=== PATIENT | male | born 1985 | race Hispanic/Latino ===

== ENCOUNTER 2017-10-16 16:56 | Inpatient (IN) | payer MEDICAID ==
[2017-10-16 16:57] VITALS: BMI 28.8
[2017-10-16 17:57] LABS: BASO % 0.6 % (0.0-2.0); EOS # 0.4 K/uL (0.0-0.7); EOS % 5.7 % (0.0-4.0); HEMATOCRIT 41.8 % (35.0-51.0); LYMPH # 2.1 K/uL (1.0-4.3); LYMPH % 29.7 % (20.0-40.0); MEAN CELL VOLUME 81.2 fL (80.0-94.0); MEAN CORPUSCULAR HEMOGLOBIN 27.2 pg (27.0-31.0); MEAN CORPUSCULAR HGB CONC 33.4 g/dL (33.0-37.0); MEAN PLATELET VOLUME 8.5 fL (7.2-11.7); MONO # 0.6 K/uL (0.0-0.8); MONO % 8.2 % (0.0-10.0); NRBC % 0.1 % (0.0-2.0); RED CELL DISTRIBUTION WIDTH 13.1 % (11.5-14.5); WHITE BLOOD COUNT 7.2 K/uL (4.8-10.8)
--- NOTE | 2017-10-16 17:58 | C.PDOC ---
History Of Present Illness 32 y/o male requesting heroin detox. Last use was 1 PM today. Denies any other complaints. Time Seen by Provider: 10/16/17 17:20 Chief Complaint (Nursing): Substance Abuse History Per: Patient History/Exam Limitations: no limitations Current Symptoms Are (Timing): Still Present Modifying Factor(s): Narcotics Recent travel outside of the [place]: No Past Medical History Reviewed: Historical Data, Nursing Documentation, Vital Signs Vital Signs: Last Vital Signs Temp 97.9 F 10/16/17 19:23 Pulse 97 H 10/16/17 19:23 Resp 18 10/16/17 19:23 BP 120/75 10/16/17 19:23 Pulse Ox 97 10/16/17 19:23 - Medical History PMH: Anxiety, Bipolar Disorder, Hepatitis (C), Seizures (withdrawal) - [facility] Procedures DETOXIFICATION SERVICES FOR SUBSTANCE ABUSE TREATMENT (06/28/16) GROUP OVERHAULER HELPER FOR SUBSTANCE ABUSE TREATMENT, PSYCHOEDUCATION (04/12/16) PHARMACOTHERAPY FOR SUBSTANCE ABUSE, METHADONE MAINT (06/28/16) Family History: States: Unknown Family Hx - Social History Hx Alcohol Use: No Hx Substance Use: Yes - Immunization History Hx Tetanus Toxoid Vaccination: Yes Hx Influenza Vaccination: Yes Hx Pneumococcal Vaccination: Yes Review Of Systems Constitutional: Negative for: Fever, Chills Gastrointestinal: Negative for: Nausea, Vomiting Skin: Negative for: Rash Physical Exam - Physical Exam Appears: Non-toxic, No Acute Distress Skin: Normal Color, Warm, Dry Head: Atraumatic, Normacephalic Oral Mucosa: Moist Chest: Symmetrical Cardiovascular: Rhythm Regular Respiratory: Normal Breath Sounds, No Rales, No Rhonchi, No Wheezing Gastrointestinal/Abdominal: Soft, No Tenderness Back: Normal Inspection Extremity: Normal ROM Neurological/Psych: Oriented x3, Normal Speech, Normal Cognition ED Course And Treatment - Laboratory Results Result Diagrams: 10/16/17 17:51 10/16/17 17:51 O2 Sat by Pulse Oximetry: 99 (RA) Pulse Ox Interpretation: Normal Medical Decision Making Medical Decision Makin:22 - pt medically cleared Disposition - Disposition Disposition: HOSPITALIZED Disposition Time: 07:00 Condition: STABLE - Clinical Impression Clinical Impression: Opiate addiction - Scribe Statement The provider has reviewed the documentation as recorded by the Scribe SM All medical record entries made by the Scribe were at my direction and personally dictated by me. I have reviewed the chart and agree that the record accurately reflects my personal performance of the history, physical exam, medical decision making, and the department course for this patient. I have also personally directed, reviewed, and agree with the discharge instructions and disposition.
[2017-10-16 18:09] LABS: ALB/GLOB RATIO 1.5 (1.0-2.1); ALCOHOL SERUM < 10 mg/dl (0-10); ALKALINE PHOSPHATASE 66 U/L (38-126); ALT/SGPT 40 U/L (21-72); AST/SGOT 28 U/L (17-59); BILIRUBIN,TOTAL 0.7 mg/dL (0.2-1.3); BLOOD UREA NITROGEN 14 mg/dL (9-20); CALCIUM 8.5 mg/dl (8.6-10.4); CARBON DIOXIDE 24 mmol/L (22-30); CHLORIDE 100 mmol/L (98-107); GFR AFRICAN-AMERICAN > 60; GLUCOSE,RANDOM 85 mg/dL (75-110); POTASSIUM 4.1 mmol/L (3.6-5.2); SODIUM 137 mmol/L (132-148); TOTAL PROTEIN 7.6 g/dL (6.3-8.3)
[2017-10-16 18:17] LABS: RBC URINE < 1 /hpf (0-3); URINE BILIRUBIN NEGATIVE (NEGATIVE); URINE BLOOD NEGATIVE (NEGATIVE); URINE COLOR Yellow (YELLOW); URINE GLUCOSE (UA) NORMAL (Normal); URINE KETONE NEGATIVE (NEGATIVE); URINE LEUKOCYTE ESTERASE NEG Leu/uL (Negative); URINE PROTEIN NEGATIVE (NEGATIVE); URINE UROBILINOGEN NORMAL mg/dL (0.2-1.0); WBC URINE 1 /hpf (0-5)
--- NOTE | 2017-10-16 19:58 | PCM.BM ---
<Kimberly Dooley - Last Filed: 10/16/17 19:56> Treatment Plan Problems - Problems identified on initial assessmt Opiate withdrawal Date Initiated: 10/16/17 Time Initiated: 20:30 Assessment reference: NA Status: Active Treatment assets and liabiliti Patient Assests: cooperative, ADL independent, negotiates basic needs Patient Liabilities: substance abuse - Milieu Protocol Maintain good personal hygiene: daily Encourage regular showers, daily Remind patient to perform daily oral care, daily Assist patient to perform ADL's Conduct patient checks and document Observation sheet: Q15 minutes Maintain personal safety: every shift Educate patient to report safety concerns to staff, every shift Monitor environment for contraband/sharps Medication safety: Monitor for expected outcome, potential side effects: every shift, Assess barriers to learning: every shift, Assess readiness for medication education: every shift <Betty Adan - Last Filed: 10/17/17 14:57> - Diagnosis (1) Opioid use disorder, severe, dependence Status: Acute Interventions: 10/17/17 14:57 * Assess 7x/week regarding severity of withdrawal * Educate regarding risks, benefits, side effects and alternatives of medications * Use Motivational Interviewing for abstinence * Use CBT for relapse prevention * Medication management for withdrawal symptoms * Encourage medication assisted treatment *
--- NOTE | 2017-10-17 09:43 | PCM.PSYCH ---
Initial Psychiatric Evaluation - Initial Psychiatric Evaluation Type of Admission: Voluntary Legal Status: Capacity Chief Complaint (in patient's own words): "I need help with detox" History of Present Illness and Precipitating Events: The patient is seen, chart reviewed and case discussed. He is well-known to the grant writer from his previous admissions. He is a 32-year-old male, single with one child who is 7 years old and lives with the patient's mother, and the patient also lives with his parents and his son on and off, but then he claimed he stays with a friend who was a pt here last week. 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 He claims he has been on methadone up to 90 mg but asked them to go down and then when he was on 25 mg he quit the program. Since then he uses methadone (3 weeks ago last time) and heroin on and off and he attempted getting on suboxone but he failed few times (even after waiting for 24 hours) and thus he came here. He is not sure if he wants sbx or methadone detox but leaning towards sbx b/c "I don't want to get on meth again." He is also on 2 mg BID xanax from a psychiatrist (confirmed) and he claims he had been on benzos many years and he had a seizure when his dr decreased 1 mg. He says he will deal with that later. He uses cocaine "rarely" As per the patient, he has been abusing heroin, cocaine and benzos for more than 10 years. Past psychiatric history: Reports history of 3 inpatient psychiatric hospitalizations in the past due to depression and anxiety and PTSD. He claims most antidepressants and antipsychotics dystonia-like symptoms..he doesn't want Neurontin. He has a psychiatrist now who rx's Xanax and sbx (confirmed via [place] [employer]) Denies any history of suicidal ideation or any attempt in the past patient Denies any history of homicidal ideation or attempt Denies any legal charges Past medical history: GERD and a small lump in one breast. hepatitis C is positive Family psych history: Mother used drugs in the 70's. His brothers still use alcohol and cocaine. Current Medications: Active Medications Generic Name Dose Route Start Last Admin Trade Name Freq PRN Reason Stop Dose Admin Chlordiazepoxide 25 mg 10/16/17 20:00 10/16/17 22:04 Librium PO 10/20/17 19:59 25 mg QID HELENE Administration Taper Clonidine HCl 0.1 mg 10/16/17 20:18 Catapres PO Q8 PRN COWS Score More or Equal to 5 Ibuprofen 400 mg 10/16/17 20:18 Motrin Tab PO Q6 PRN Pain, moderate (4-7) Loperamide HCl 2 mg 10/16/17 20:18 Imodium PO Q8 PRN Diarrhea Ondansetron HCl 4 mg 10/16/17 20:18 Zofran Tab PO Q8 PRN Nausea/Vomiting Pneumococcal Polyvalent Vaccine 0.5 ml 10/21/17 10:00 Pneumovax 23 Vaccine IM 10/21/17 10:01 .ONCE ONE Past Psychiatric History - Past Psychiatric History Previous Treatment History: Inpatient Pertinent Medical Hx (Current Medical&Sleep Prob, Allergies): Allergies Allergy/AdvReac Type Severity Reaction Status Date / Time mirtazapine [From Remeron] Allergy Intermediate Verified 10/16/17 17:12 quetiapine fumarate Allergy Intermediate Verified 10/16/17 17:12 [From Seroquel] risperidone [From Risperdal] Allergy Intermediate Verified 10/16/17 17:12 trazodone Allergy Intermediate Verified 10/16/17 17:12 lurasidone HCl [From Latuda] Allergy Verified 10/16/17 17:12 Alprazolam 2 mg PO BID 10/16/17 Dexlansoprazole [Dexilant] 60 mg PO DAILY 10/16/17 Review of Systems - Psychiatric Psychiatric: Abnormal Sleep Pattern, Anxiety, Difficulty Concentrating, Irritability. absent: Hallucinations, Homicidal Ideation, Paranoia, Suicidal Ideation Mental Status Examination - Personal Presentation Personal Presentation: Looks stated age - Affect Affect: Constricted - Motor Activity Motor Activity: Calm - Reliability in Providing Information Reliability in Providing Information: Good - Speech Speech: Organized - Mood Mood: Anxious - Formal Thought Process Formal Thought Process: No Impairment - Cognitive Functions Orientation: Person, Place, Situation, Time Sensorium: Alert Attention/Concentration: Attentive Estimate of Intelligence: Average Judgement: Intact, as evidence by: Insight regarding need for hospitalization Memory: Recent intact, as evidence by: Ability to recall events of the day, Remote intact, as evidenced by: Abilit to recall sig. life events - Risk Risk: Seizure, Withdrawal, Diminished functioning - Strength & Assets Inventory Strength & Assets Inventory: Cooperative - Limitations Limitations: Living alone DSM 5 DX - DSM 5 DSM 5 Diagnosis: Opioid withdrawal Opioid use d/o -severe Cocaine use d/o - moderate Sedative, hypnotic and anxiolytic use d/o -severe PTSD r/o Personality d/o Depressive d/o - unspecified - Recommended/Plan of Treatment Treatment Recommendations and Plan of Treatment: Subutex detox ... unless he changes his mind again Ativan 2 mg BID to replace Xanax Consider benzo detox As needed medications Attend groups and activities Supportive therapy and psychoeducation [place] for abstinence CBT for relapse prevention Encourage MAT Refer to rehab or IOP Attend self-help groups as well 34 min Projected ELOS: 5-6 days Prognosis: good w treatment Discharge Plan and Discharge Criteria: no wdw sxs
[2017-10-17] MEDS: DEXLANSOPRAZOLE 60 MG PO SCH (13:50)
[2017-10-18] MEDS: DEXLANSOPRAZOLE 60 MG PO SCH (09:18)
--- NOTE | 2017-10-18 15:18 | PCM.PYCHPN ---
Psychiatric Progress Note - Psychiatric Progress Note Patient seen today, length of contact: 15 min Patient Chief Complaint: I am still withdrawing.' Problems Identified/Issues Discussed: Patient seen and evaluated, chart reviewed and discussed with the nurse. Patient remained irritable and anxious. Patient reports withdrawal symptoms including nausea, headaches, cramps and sweating. He reports depressed mood but denies any feelings of hopelessness and helplessness. He denies any SI/HI/AVH. He is taking medication and denies any side effects. Supportive therapy and psychoeducation were given. Medication Change: Yes (methadone taper) Medical Record Reviewed: Yes Mental Status Examination - Cognitive Function Orientation: Person, Place, Situation, Time Memory: Intact Attention: WNL Concentration: Poor Association: WNL Fund of Knowledge: Poor - Mood Mood: Anxious - Affect Affect: Constricted - Speech Speech: Soft - Formal Thought Process Formal Thought Process: No Impairment - Suicidal Ideation Suicidal Ideation: No - Homicidal Ideation Homicidal Ideation: No Goal/Treatment Plan - Goal/Treatment Plan Need for Continued Stay: Discharge may exacerbated symptoms, Severe functional impairment Progress Toward Problem(s) and Goals/Treatment Plan: Opioid withdrawal Opioid use d/o -severe Cocaine use d/o - moderate Sedative, hypnotic and anxiolytic use d/o -severe PTSD r/o Personality d/o Depressive d/o - unspecified Methadone taper Ativan 2 mg BID to replace Xanax Consider benzo detox As needed medications Attend groups and activities Supportive therapy and psychoeducation [place] for abstinence CBT for relapse prevention Encourage MAT Refer to rehab or IOP Attend self-help groups as well - Smoking Cessation Smoking Cessation Initiated: No
[2017-10-19] MEDS: DEXLANSOPRAZOLE 60 MG PO SCH (09:27)
--- NOTE | 2017-10-20 05:49 | PCM.PYCHPN ---
Psychiatric Progress Note - Psychiatric Progress Note Patient seen today, length of contact: 15 min Patient Chief Complaint: "I need help with detox" Problems Identified/Issues Discussed: The pt is seen, chart reviewed, case discussed with staff. Support given, CBT and CT used briefly No new symptoms reported, improving slowly and needs more time prn methadone to be dc'ed b/c he now says he won;t stay until Saturday b/c he needs "to work" No SEs from medications, risks discussed. After care discussed - he plans to either start vivitrol after a week (after trying naltrexone pills) or suboxone maintenance. Medication Change: Yes (methadone taper) Medical Record Reviewed: Yes Mental Status Examination - Cognitive Function Orientation: Person, Place, Situation, Time Memory: Intact Attention: WNL Concentration: Poor Association: WNL Fund of Knowledge: Poor - Mood Mood: Anxious - Affect Affect: Constricted - Speech Speech: Soft - Formal Thought Process Formal Thought Process: No Impairment - Suicidal Ideation Suicidal Ideation: No - Homicidal Ideation Homicidal Ideation: No Goal/Treatment Plan - Goal/Treatment Plan Need for Continued Stay: Discharge may exacerbated symptoms, Severe functional impairment Progress Toward Problem(s) and Goals/Treatment Plan: methadone detox Ativan 2 mg BID to replace Xanax Will get a 0.5 extra b/c of "increased anxiety" refusing benzo detox now As needed medications Attend groups and activities Supportive therapy and psychoeducation [place] for abstinence CBT for relapse prevention Encourage MAT Refer to rehab or IOP Attend self-help groups as well
[2017-10-20] MEDS: DEXLANSOPRAZOLE 60 MG PO SCH (09:19)
--- NOTE | 2017-10-20 12:58 | PCM.PYCHPN ---
Psychiatric Progress Note - Psychiatric Progress Note Patient seen today, length of contact: 15 min Patient Chief Complaint: I am still withdrawing.' Problems Identified/Issues Discussed: Patient seen and evaluated, chart reviewed and discussed with the nurse. Patient remained irritable and anxious. Patient reports withdrawal symptoms including nausea, headaches, cramps and sweating. He reports depressed mood but denies any feelings of hopelessness and helplessness. He denies any SI/HI/AVH. He is taking medication and denies any side effects. Supportive therapy and psychoeducation were given. Medication Change: Yes (methadone taper) Medical Record Reviewed: Yes Mental Status Examination - Cognitive Function Orientation: Person, Place, Situation, Time Memory: Intact Attention: WNL Concentration: Poor Association: WNL Fund of Knowledge: Poor - Mood Mood: Anxious - Affect Affect: Constricted - Speech Speech: Soft - Formal Thought Process Formal Thought Process: No Impairment - Suicidal Ideation Suicidal Ideation: No - Homicidal Ideation Homicidal Ideation: No Goal/Treatment Plan - Goal/Treatment Plan Need for Continued Stay: Discharge may exacerbated symptoms, Severe functional impairment Progress Toward Problem(s) and Goals/Treatment Plan: Opioid withdrawal Opioid use d/o -severe Cocaine use d/o - moderate Sedative, hypnotic and anxiolytic use d/o -severe PTSD r/o Personality d/o Depressive d/o - unspecified Methadone taper Ativan 2 mg BID to replace Xanax Consider benzo detox As needed medications Attend groups and activities Supportive therapy and psychoeducation [place] for abstinence CBT for relapse prevention Encourage MAT Refer to rehab or IOP Attend self-help groups as well
--- NOTE | 2017-10-20 15:03 | PCM.PYCHPN ---
Psychiatric Progress Note - Psychiatric Progress Note Patient seen today, length of contact: 15 min Patient Chief Complaint: I am feeling much better.' Problems Identified/Issues Discussed: Patient seen and evaluated, chart reviewed and discussed with the nurse. Today patient reports improvement in his anxiety and improvement in the withdrawal symptoms. He reports improvement in the sleep and appetite. He reports Improvement in his mood and denies any SI/HI/AVH. He is taking medication and denies any side effects. He needs more time for stabilization. Supportive therapy and psychoeducation were given. Medication Change: Yes (methadone taper) Medical Record Reviewed: Yes Mental Status Examination - Cognitive Function Orientation: Person, Place, Situation, Time Memory: Intact Attention: WNL Concentration: WNL Association: WNL Fund of Knowledge: WNL - Mood Mood: Anxious - Affect Affect: Constricted - Speech Speech: Soft - Formal Thought Process Formal Thought Process: No Impairment - Suicidal Ideation Suicidal Ideation: No - Homicidal Ideation Homicidal Ideation: No Goal/Treatment Plan - Goal/Treatment Plan Need for Continued Stay: Discharge may exacerbated symptoms, Severe functional impairment Progress Toward Problem(s) and Goals/Treatment Plan: Opioid withdrawal Opioid use d/o -severe Cocaine use d/o - moderate Sedative, hypnotic and anxiolytic use d/o -severe PTSD r/o Personality d/o Depressive d/o - unspecified Methadone taper Consider benzo detox As needed medications Attend groups and activities Supportive therapy and psychoeducation [place] for abstinence CBT for relapse prevention Encourage MAT Refer to rehab or IOP Attend self-help groups as well - Smoking Cessation Smoking Cessation Initiated: No
[2017-10-21 06:36] VITALS: O2SAT 99
--- NOTE | 2017-10-21 08:45 | PCM.PYCHDC ---
Mental Status Examination - Mental Status Examination Orientation: Person Discharge Summary - Discharge Note Consultations:: List each consultation separately and include: 1. Reason for request. 2. Findings. 3. Follow-up Summary of Hospital Course include:: 1. Description of specific treatment plan utilized for patients during their course of treatmen. 2. Summarize the time- course for resolution of acute symptoms and/or regressed behaviors. 3. Describe issues identified and worked on during hospitalization. 4. Describe medication utilized. 5. Describe medical problems identified and treated. 6. Reassessment of suicide risk Summary of Hospital Course: The patient is seen, chart reviewed and case discussed. He is well-known to the underwriter from his previous admissions. He is a 32-year-old male, single with one child who is 7 years old and lives with the patient's mother, and the patient also lives with his parents and his son on and off, but then he claimed he stays with a friend who was a pt here last week. 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 He claims he has been on methadone up to 90 mg but asked them to go down and then when he was on 25 mg he quit the program. Since then he uses methadone (3 weeks ago last time) and heroin on and off and he attempted getting on suboxone but he failed few times (even after waiting for 24 hours) and thus he came here. He is not sure if he wants sbx or methadone detox but leaning towards sbx b/c "I don't want to get on meth again." He is also on 2 mg BID xanax from a psychiatrist (confirmed) and he claims he had been on benzos many years and he had a seizure when his dr decreased 1 mg. He says he will deal with that later. He uses cocaine "rarely" As per the patient, he has been abusing heroin, cocaine and benzos for more than 10 years. Past psychiatric history: Reports history of 3 inpatient psychiatric hospitalizations in the past due to depression and anxiety and PTSD. He claims most antidepressants and antipsychotics dystonia-like symptoms..he doesn't want Neurontin. He has a psychiatrist now who rx's Xanax and sbx (confirmed via [place] [employer]) Denies any history of suicidal ideation or any attempt in the past patient Denies any history of homicidal ideation or attempt Denies any legal charges Past medical history: GERD and a small lump in one breast. hepatitis C is positive Family psych history: Mother used drugs in the 70's. His brothers still use alcohol and cocaine. - Diagnosis (1) Opioid use disorder, severe, dependence Current Visit: Yes Status: Acute - Final Diagnosis (DSM 5) Condition upon Discharge: STABLE Disposition: HOME/ ROUTINE Follow-up Treatment Plan: methadone detox Ativan 2 mg BID to replace Xanax Will get a 0.5 extra b/c of "increased anxiety" refusing benzo detox now As needed medications Attend groups and activities Supportive therapy and psychoeducation [place] for abstinence CBT for relapse prevention Encourage MAT Refer to rehab or IOP Attend self-help groups as well
[2017-10-21] MEDS: DEXLANSOPRAZOLE 60 MG PO SCH (09:34)
[2017-10-21] MEDS ORDERED: Influenza Vaccine 60 mcg/0.5 mL SYR (4YR UP) IM ONE (10:00)
[2017-10-21] MEDS ORDERED: Pneumococcal 23-Valent Vaccine IM ONE (10:00)
[2017-10-21 11:23] VITALS: BP 102/75; PULSE 100; RESP 20; TEMP 98.1
== END 2017-10-21 09:45 | disposition home or self-care (01) | DRG 744 ==
LOC: C.ER 16:56 → C.7D 18:59
PROVIDERS: ADMIT Psychiatry & Neurology Psychiatry; ATTEND Psychiatry & Neurology Psychiatry
PROC: HZ2ZZZZ Detoxification Services for Substance Abuse Treatment (ICD-10-PCS; principal; 2017-10-16)
PROC: HZ59ZZZ Individual Psychotherapy for Substance Abuse Treatment, Supportive (ICD-10-PCS; 2017-10-16)
PROC: HZ46ZZZ Group Counseling for Substance Abuse Treatment, Psychoeducation (ICD-10-PCS; 2017-10-16)
PROC: GZ3ZZZZ Medication Management (ICD-10-PCS; 2017-10-16)
DX: F11.23 Opioid dependence with withdrawal (principal); F32.9 Major depressive disorder, single episode, unspecified; F14.90 Cocaine use, unspecified, uncomplicated; F13.10 Sedative, hypnotic or anxiolytic abuse, uncomplicated; B18.2 Chronic viral hepatitis C; F31.9 Bipolar disorder, unspecified; F43.10 Post-traumatic stress disorder, unspecified; K21.9 Gastro-esophageal reflux disease without esophagitis